=== PATIENT | female | born 1995 | race Caucasian/White ===

== ENCOUNTER → 2017-11-19 | Outpatient (CLI) | payer OTHER ==
[~2017-11-19] MED LIST: CARAFATE 1 GM TA1 GM PO; HYDROCODONE-APA1 TA1 PO; REGLAN10 MG PO; ZANTAC 150MG T150 MG PO
== END ==
LOC: M.RAD 15:31
DX: M19.072 Primary osteoarthritis, left ankle and foot (principal)

== ENCOUNTER → 2021-10-18 | Outpatient (CLI) | payer OTHER ==
--- NOTE | 2021-10-18 12:02 | 2DMMODE ---
[place] [address] 2 D/M-MODE ECHOCARDIOGRAM Name: WESLEY MARIN Room: [facility]#: [id number] Admission: 10/18/21 Attend Phys: Lisa Wililamson DO Discharge: Date of : 89 Date of Service: 10/18/21 1202 Report #: [id number] THIS REPORT FOR: cc: Lisa Williamson Maggie M. DO Liston, Michael J. MD [facility] ~ APPROVED REPORT Study performed: 10/18/2021 09:18:17 EXAM: Comprehensive 2D, Doppler, and color-flow Echocardiogram Patient Location: Out-Patient BSA: 1.91 HR: 75 bpm BP: 115/70 mmHg Other Information Study Quality: Good Indications Chest heaviness 2D Dimensions IVSd: 10.04 (7-11mm) LVOT Diam: 20.04 (18-24mm) LVDd: 42.35 mm PWd: 6.86 (7-11mm) Ascending Ao: 23.55 (22-36mm) LVDs: 27.19 (25-40mm) Aortic Root: 23.92 mm Volumes Left Atrial Volume (Systole) LA ESV Index: 12.60 mL/m2 Aortic Valve AoV Peak Huber.: 1.12 m/s AO Peak Gr.: 5.06 mmHg LVOT Max P.95 mmHg AO Mean Gr.: 2.53 mmHg LVOT Mean P.41 mmHg LVOT Max V: 0.86 m/s AO V2 VTI: 22.45 cm LVOT Mean V: 0.54 m/s VICENTE (VTI): 2.47 cm2 LVOT V1 VTI: 17.62 cm Mitral Valve E/A Ratio: 2.01 [place] [address] 2 D/M-MODE ECHOCARDIOGRAM Name: WESLEY MARIN Room: [facility]#: [id number] Admission: 10/18/21 Attend Phys: Lisa Williamson DO Discharge: Date of : 89 Date of Service: 10/18/21 1202 Report #: [id number] MV Decel. Time: 246.56 ms MV E Max Huber.: 0.72 m/s MV PHT: 71.50 ms MVA (PHT): 3.08 cm2 TDI E/Lateral E': 3.00 E/Medial E': 3.43 Medial E' Huber.: 0.21 m/s Lateral E' Huber.: 0.24 m/s Pulmonary Valve PV Peak Huber.: 1.13 m/s PV Peak Gr.: 5.14 mmHg Tricuspid Valve RAP Estimate: 5.00 mmHg TR Peak Gr.: 18.02 mmHg RVSP: 23.02 mmHg PA Pressure: 23.02 mmHg Left Ventricle The left ventricle is normal size. There is normal LV segmental wall motion. There is normal left ventricular wall thickness. Left ventricular systolic function is normal. LVEF is 55-60%. The left ventricular diastolic function is normal. Right Ventricle The right ventricle is normal size. The right ventricular systolic function is normal. Atria The left atrium size is normal. The right atrium size is normal. Aortic Valve The aortic valve is normal in structure. No aortic regurgitation is present. There is no aortic valvular stenosis. Mitral Valve The mitral valve is normal in structure. There is no mitral valve regurgitation noted. No evidence of mitral valve stenosis. Tricuspid Valve The tricuspid valve is normal in structure. Trace tricuspid regurgitation. Pulmonic Valve The pulmonary valve is normal in [place] [address] 2 D/M-MODE ECHOCARDIOGRAM Name: WESLEY MARIN [id number] Admission: 10/18/21 Attend Phys: Lisa Williamson DO Discharge: Date of : 89 Date of Service: 10/18/21 1202 Report #: [id number] regurgitation. Great Vessels The aortic root is normal in size. IVC is normal in size and collapses >50% with inspiration. Pericardium There is no pericardial effusion. <Conclusion> The left ventricle is normal size. There is normal left ventricular wall thickness. Left ventricular systolic function is normal. LVEF is 55-60%. The left ventricular diastolic function is normal. Trace tricuspid regurgitation. Trace pulmonic regurgitation. IVC is normal in size and collapses >50% with inspiration. <ELECTRONICALLY SIGNED> By: Hoang Palacios MD, FACC 10/18/21 120 120 120 Hoang Palacios MD, FACC /INF
== END ==
LOC: M.CRD 08:00
PROVIDERS: ATTEND Family Medicine
DX: R07.89 Other chest pain (principal); U09.9 Post COVID-19 condition, unspecified